=== PATIENT | female | born 1985 | race American Indian/Alaskan Native ===

== ENCOUNTER 2019-06-10 09:22 | Emergency (ER) | payer OTHER ==
[2019-06-10 09:36] VITALS: BP 133/81
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
[2019-06-10] MEDS ORDERED: KETOROLAC 10 MG TAB PO ONE (12:00)
== END 2019-06-10 12:51 | disposition home or self-care (01) ==
LOC: ED 09:22
DX: S16.1XXA Strain of muscle, fascia and tendon at neck level, initial encounter (principal); S39.012A Strain of muscle, fascia and tendon of lower back, initial encounter; V49.49XA Driver injured in collision with other motor vehicles in traffic accident, initial encounter; Y93.89 Activity, other specified; Y92.488 Other paved roadways as the place of occurrence of the external cause; Y99.8 Other external cause status
CPT/HCPCS: 99282